=== PATIENT | male | born 2000 | race Caucasian/White ===

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

== ENCOUNTER → 2023-06-23 | Outpatient (CLI) | payer BC ==
[~2023-06-23] MED LIST: ANUS25SU PR; CLEO300C2 PO; LIDO15SO SSP; MIRA3350 PO; PERC5TAB12 PO; ZOFR4TAB14 PO
[2023-06-23 12:20] LABS: HEMATOCRIT 48.4 % (42.0-52.0); HEMOGLOBIN 16.1 g/dl (13.5-17.5); MEAN CORPUSCULAR HEMOGLOBIN 29.4 pg (27.0-33.0); MEAN CORPUSCULAR HGB CONC 33.3 g/dl (32.0-36.5); MEAN CORPUSCULAR VOLUME 88.3 fl (80.0-96.0); PLATELET COUNT, AUTOMATED 187 10^3/uL (150-450); RED BLOOD COUNT 5.48 10^6/uL (4.30-6.10)
[2023-06-23 12:44] LABS: PROSTATIC SPECIFIC AG MONITOR 0.27 NG/ML (< 4.00)
[2023-06-23 12:47] LABS: TOTAL 25(OH) VITAMIN D 19.2 NG/ML (20.0-100.0)
[2023-06-23 12:49] LABS: THYROID STIMULATING HORMONE 1.231 uIU/ML (0.55-4.78)
[2023-06-23 12:50] LABS: CHOLESTEROL RISK RATIO 5.79 (<5); HDL CHOLESTEROL 44.9 MG/DL (>40); LDL CHOLESTEROL 180.3 MG/DL (<100); NON-HDL-C 215.1 MG/DL
== END ==
LOC: M RAD 10:55
PROVIDERS: ATTEND Family Medicine
DX: I10 Essential (primary) hypertension (principal); R53.82 Chronic fatigue, unspecified; E03.9 Hypothyroidism, unspecified; R00.1 Bradycardia, unspecified; R94.31 Abnormal electrocardiogram [ECG] [EKG]